=== PATIENT | female | born 1950 | race Caucasian/White ===

== ENCOUNTER → 2016-12-10 | Outpatient (CLI) | payer OTHER ==
[~2016-12-10] VITALS: Ht 162.6 cm; Wt 52.2 kg
[~2016-12-10] MED LIST: ACETAMINOPHEN325 M1 PO; ALBUTEROL2.5 MG/31 INH; ASPIR 8181 M1 PO; ASPIRIN81 M2 PO; CALCIUM + D3 E1 EACH PO; CALCIUM 500 +1 EAC6 PO; CARDIZEM CD180 MG PO; CEFTIN500 MG PO; CLARITIN10 MG PO; DALIRESP500 MCG PO; DOXYCYCLINE 10100 MG PO; FLONASE 0.05%50 MCG NASAL; LEVAQUIN 500 M500 M2 PO; MUCINEX600 MG PO; MULTIVITAMINS1 EAC7 PO; NASONEX17 GM NASAL; NITROGLYCERIN0.4 MG SUBLING; NOHOMEMEDICATIONS; NORCO 7.5-3251 EACH PO; PERCOCET 5-3251 EACH PO; PREDNISONE 10 M10 M1 PO; PREDNISONE 20 M20 M1 PO; PREDNISONE 5 MG5 M1 PO; PROAIR HFA8.5 GM INH; RECLAST 55 MG/1002 IVPB; SPIRIVA INH; SYMBICORT80 MCG/4.1 INH; TUSSID DM SYRU240 ML PO; VITAMIN D31000 UNI2 PO; VITAMIN D32000 UNIT PO; VITAMINC500 PO; XANAX 0.5 MG0.5 MG PO
--- NOTE | ~2016-12-10 | S ---
[facility] [place] [address] SURGICAL PATH RPT PROCEDURE Name: KRZYSZTOF BENTLEY Room #: [facility].#: [id number] Admission: 12/10/16 Date of : 46 Discharge: Report #: [id number] Path Case #: [id number] PATHOLOGY REPORT COLLECTION DATE: 12/10/2016 RECEIVED DATE: 12/10/2016 SUBMITTING PHYS: Dr. Xiang Che OTHER PHYS: Dr. Fanny Keller SPECIMEN(S) RECEIVED: A.Polyp at hepatic flexure B.Polyp at 50 cm C.Polyp at 30 cm * * * * * * * * * * * * FINAL DIAGNOSIS: A. Polyp, hepatic flexure, endoscopic biopsy: - Hyperplastic polyp. - Negative for dysplasia. B. Polyp, at 50 cm, endoscopic biopsy: - Tubular adenoma. - Negative for high-grade dysplasia. C. Polyp, at 30 cm, endoscopic biopsy: - Tubular adenoma. - Negative for high-grade dysplasia. (IUV:mgr; 12/13/2016) PATHOLOGIST: Arabella Mccormick M.D. REPORT ELECTRONICALLY SIGNED BY: Arabella Mccormick M.D. DATE/TIME: 12/13/2016 15:08 * * * * * * * * * * * * GROSS PATHOLOGY: A. Received in formalin labeled "Krzysztof Bentley, polyp at hepatic flexure," are multiple segments of abad soft tissue measuring 0.7 cm in aggregate dimensions and ranging from 0.1 to 0.3 cm in maximum dimension. The specimen is submitted entirely in cassette A1. B. Received in formalin labeled "Krzysztof Bentley, polyp at 50 cm," are 2 segments of abad soft tissue measuring 0.4 cm in aggregate dimensions and each measuring 0.2 cm in maximum dimension. The specimen is submitted entirely in cassette B1. C. Received in formalin labeled "Krzysztof Bentley, polyp at 30 cm," are 2 segments of abad soft tissue measuring 0.4 cm in aggregate dimensions and each measuring 0.2 cm in maximum dimension. The specimen is submitted entirely in cassette C1. ([facility]; 12/10/2016) [address] [place] [address] SURGICAL PATH RPT PROCEDURE Name: KRZYSZTOF BENTLEY Room #: [facility].#: [id number] Admission: 12/10/16 Date of : 46 Discharge: Report #: [id number] Path Case #: [id number] CLINICAL HISTORY: History of polyp, colon polyps INITIAL CPT CODE(S): A; 18199 B; 58199 C; 92027 Professional services performed by [facility] at [address], [place] [address] Technical services performed by [facility] at [address] [place] [address], [facility] [address] [address]. [facility] [address] [address] PHONE: [phone] DIRECTOR: Angel W. Zakiya, M.D. * * * END OF REPORT * * *
== END | disposition home or self-care (01) ==
LOC: GI 07:40
DX: Z09 Encounter for follow-up examination after completed treatment for conditions other than malignant neoplasm (principal); D12.3 Benign neoplasm of transverse colon; D12.5 Benign neoplasm of sigmoid colon; K63.5 Polyp of colon; K57.30 Diverticulosis of large intestine without perforation or abscess without bleeding; K62.89 Other specified diseases of anus and rectum; I10 Essential (primary) hypertension; J44.9 Chronic obstructive pulmonary disease, unspecified; M81.0 Age-related osteoporosis without current pathological fracture; Z90.49 Acquired absence of other specified parts of digestive tract; Z85.038 Personal history of other malignant neoplasm of large intestine; Z98.0 Intestinal bypass and anastomosis status; Z79.82 Long term (current) use of aspirin; Z87.891 Personal history of nicotine dependence; Z98.890 Other specified postprocedural states; Z87.442 Personal history of urinary calculi; Z98.41 Cataract extraction status, right eye; Z98.42 Cataract extraction status, left eye; Z96.1 Presence of intraocular lens; Z79.899 Other long term (current) drug therapy
CPT/HCPCS: 62110; 62900